=== PATIENT | male | born 1940 | race Caucasian/White ===

== ENCOUNTER 2020-09-02 11:43 | Outpatient (REF) | payer MEDICARE, SELFPAY ==
[2020-09-02 14:09] LABS: Glucose Urine UA NEG (NEG); Leukocyte Esterase Urine NEG (NEG); Nitrite Urine NEG (NEG); Urine Blood NEG (NEG); Urine Ketones 5 MG/DL (NEG); Urine Protein NEG (NEG-TRACE)
[2020-09-02 14:11] LABS: Appearance Urine CLEAR; Color Urine YELLOW
[2020-09-02 14:32] LABS: Anion Gap 14 (12-20); Blood Urea Nitrogen 21 mg/dL (9-16); Calcium 9.5 mg/dL (8.4-10.2); Carbon Dioxide 27 mmol/L (22-29); Chloride 104 mmol/L (96-108); Cholesterol 204 mg/dL; Estimated Glomerular Filt Rate > 60; Glucose Fasting 89 mg/dL (60-99); HDL Cholesterol 47 mg/dL; LDL Cholesterol Calculated 129 mg/dl; Potassium 4.8 mmol/l (3.3-5.1); Sodium 140 mmol/L (135-145); Triglycerides 144 mg/dL
[2020-09-02 14:55] LABS: Prostate Specific Antigen Scr 2.46 ng/mL (<0.05-4.0); TSH reflex Free T4 2.73 mIU/mL (0.32-4.0)
== END 2020-09-02 11:44 | disposition home or self-care (01) ==
LOC: HO.HMGCLDS 11:43
PROVIDERS: PCP Nurse Practitioner Family; Visit Provider Nurse Practitioner Family
DX: I10 Essential (primary) hypertension (principal); E79.0 Hyperuricemia without signs of inflammatory arthritis and tophaceous disease; Z12.5 Encounter for screening for malignant neoplasm of prostate
CPT/HCPCS: 80048; 80061; 81003; 84153; 84443

== ENCOUNTER 2021-06-21 10:06 | Outpatient (REF) | payer MEDICARE, SELFPAY ==
[2021-06-21 11:27] LABS: MANUAL DIFF FLAG NO
[2021-06-21 11:38] LABS: Basophils Percent Auto 0.6 % (0-2); Eosinophils Absolute Auto 0.1 X10*3/uL (0.0-0.4); Eosinophils Percent Auto 1.5 % (0-4); Hemoglobin 10.6 g/dl (14.0-18.0); Imm Gran Abs Auto 0.16 X10*3/uL (0.00-0.03); Imm Gran Pct Auto 2.9 % (0.0-0.4); Lymphocytes Percent Auto 17.9 % (20-40); Mean Corpuscular HGB Conc 31.2 g/dl (31.0-36.0); Mean Corpuscular Volume 96.3 fL (80-98); Mean Platelet Volume 9.4 fL (9.4-12.4); Monocytes Percent Auto 18.6 % (2-11); Neutrophils Absolute Auto 3.2 X10*3/uL (2.0-8.3); Neutrophils Percent Auto 58.5 % (45-73); Platelet Count 266 X10*3/uL (160-400); Red Blood Count 3.53 X10*6/uL (4.60-5.80); Red Cell Distribution Width 16.7 % (11.0-16.0); White Blood Count 5.4 X10*3/uL (4.8-10.8)
[2021-06-21 11:53] LABS: Alanine Aminotransferase 21 U/L (0-40); Albumin Level 2.1 g/dL (3.5-5.0); Alkaline Phosphatase 121 U/L (39-117); Anion Gap 12 (12-20); Aspartate Amino Transferase 30 U/L (5-37); Blood Urea Nitrogen 15 mg/dL (9-16); Calcium 7.2 mg/dL (8.4-10.2); Carbon Dioxide 21 mmol/L (22-29); Chloride 111 mmol/L (96-108); Estimated Glomerular Filt Rate > 60; Glucose Random 88 mg/dL (60-115); Potassium 4.5 mmol/L (3.3-5.1); Sodium 139 mmol/L (135-145); Total Protein 4.6 g/dL (6.5-8.0)
[2021-06-21 12:12] LABS: Bilirubin Total 0.5 mg/dL (0.0-1.0)
[2021-06-21 12:15] LABS: TSH reflex Free T4 3.76 uIU/mL (0.32-4.0)
== END 2021-06-21 10:07 | disposition home or self-care (01) ==
LOC: HO.HMGCLDS 10:06
PROVIDERS: PCP Nurse Practitioner Family; Visit Provider Nurse Practitioner Family
DX: M79.89 Other specified soft tissue disorders (principal)
CPT/HCPCS: 36415; 80053; 84443; 85025

== ENCOUNTER 2021-07-09 11:13 | Emergency (ER) | payer MEDICARE, SELFPAY ==
--- NOTE | ~2021-07-09 | XR_ITS ---
EXAMINATION: XR CHEST CLINICAL INFORMATION: CHF question COMPARISON: None TECHNIQUE: Frontal view of the chest was obtained. FINDINGS: The lungs are well-expanded with patchy linear density right middle lobe likely infiltrate or atelectasis. Rest lungs are clear. Heart size and perivascular is normal. There is a right central venous port with its tip in the mid SVC. No gross bony abnormality seen. XR/XR chest 1V IMPRESSION: Unremarkable linear ill-defined density right middle lobe likely atelectasis or infiltrate.
[2021-07-09 11:15] VITALS: BP 129/81; PULSE 80; RESP 18; TEMP 36; O2SAT 99; BMI 21.9
--- NOTE | 2021-07-09 11:48 | ED_ITS ---
HPI - General Adult General Chief complaint: General Medical Stated complaint: swollen extremities Time Seen by Provider: 07/09/21 11:48 Source: patient Mode of arrival: ambulatory Limitations: no limitations History of Present Illness HPI narrative: Patient is 81 years old with history of hypertension bladder cancer came to the ER for overall swelling for last 3 weeks specially in the lower extremities patient denies any shortness of breath or chest pain no black stools patient been told that he has low protein and he was trying to eat well , not on any diuretics patient denies any liver disease ,currently he is urinating a lot patient used to have diarrhea before now having well-formed stool Related Data Home Medications Medication Instructions Recorded Confirmed diazepam 10 mg tablet 10 mg PO DAILY PRN 01/11/21 06/21/21 diphenoxylate-atropine 2.5 tab PO 06/21/21 06/21/21 mg-0.025 mg tablet loperamide 2 mg capsule mg PO 06/21/21 06/21/21 potassium chloride 10 mEq 10 meq PO DAILY 06/21/21 06/21/21 tablet,extended release Previous Rx's Medication Instructions Recorded furosemide 20 mg tablet (Lasix) 20 mg PO QAM #30 tab 07/09/21 Allergies Allergy/AdvReac Type Severity Reaction Status Date / Time No Known Allergies Allergy Verified 06/21/21 10:41 Review of Systems Review of Systems: Yes all other systems are reviewed and are negative [facility] Past Medical History Medical History Anxiety Bladder cancer Bladder mass Hematuria HTN (hypertension) Malignant neoplasm of bladder Torticollis Surgical History History of tonsillectomy Family History Family History Mother Breast cancer Sister Breast cancer Brother Myocardial infarction Maternal Grandmother Unknown family medical history Social History Social History Advance Directives: No Physical Exam Vital Signs: Vital Signs: Last Vital Signs Temp 96.8 F 07/09/21 11:15 Pulse 69 07/09/21 14:17 Resp 18 07/09/21 14:17 BP 145/77 H 07/09/21 14:17 Pulse Ox 96 07/09/21 14:17 Body Mass Index 21.9 Appearance: Alert. Oriented X3. No acute distress. Tender as anasarca Eyes: Pallor+ no icterus ENT: Pharynx normal. Oral Mucosa moist Neck: Normal inspection. Neck supple. CVS: Normal heart rate and rhythm. Pulses normal. Respiratory: No respiratory distress. Equal air entry bilateral, no wheezing/rales/rhonchi Abdomen: Soft and nontender. Bowel sounds are present, no mass palpable, no CVA tenderness Skin: Skin warm and dry. Normal skin color. Normal skin turgor. Extremities: 4+ lower extremity edema. No calf tenderness swelling of the upper extremity also Neuro: Oriented X 3. No motor deficit. No sensory deficit.No cerebellar signs , cranial nerves II-XII intact Medical Decision Making MDM Narrative Medical decision making narrative: Patient with hypoalbuminemia of 2.3 likely the cause of general anasarca etiology not very clear will start patient on diuretics advised to follow with PCP also advised patient to have high-protein diet Lab Data Lab results reviewed: Yes I reviewed the patient's lab results. Result diagrams: 07/09/21 13:08 07/09/21 13:08 Labs: Lab Results 07/09/21 07/09/21 07/09/21 Range/Units 13:08 13:08 13:08 WBC 4.7 L (4.8-10.8) X10*3/uL RBC 3.64 L (4.60-5.80) X10*6/uL Hgb 11.0 L (14.0-18.0) g/dl Hct 35.6 L (42-52) % MCV 97.8 (80-98) fL MCH 30.2 (27.0-33.0) pg MCHC 30.9 L (31.0-36.0) g/dl RDW 17.2 H (11.0-16.0) % Plt Count 216 (160-400) X10*3/uL MPV 8.5 L (9.4-12.4) fL Immature Gran % (Auto) 0.6 H (0.0-0.4) % Neut % (Auto) 62.4 (45-73) % Lymph % (Auto) 21.4 (20-40) % Patrick % (Auto) 13.3 H (2-11) % Eos % (Auto) 1.5 (0-4) % Baso % (Auto) 0.8 (0-2) % Lymph # (Auto) 1.0 L (1.2-4.9) X10*3/uL Patrick # (Auto) 0.6 (0.1-1.2) X10*3/uL Eos # (Auto) 0.1 (0.0-0.4) X10*3/uL Baso # (Auto) 0.0 (0.0-0.2) X10*3/uL Abs Immat Gran (auto) 0.03 (0.00-0.03) X10*3/uL Absolute Neuts (auto) 2.9 (2.0-8.3) X10*3/uL Absolute Nucleated RBC 0.000 (0.0-0.012) X10*3/uL Nucleated RBC % (auto) 0.0 (0.0-0.2) /100WBC Sodium 140 (135-145) mmol/L Potassium 5.1 (3.3-5.1) mmol/L Chloride 111 H (96-108) mmol/L Carbon Dioxide 23 (22-29) mmol/L Anion Gap 11 L (12-20) BUN 15 (9-16) mg/dL Creatinine 0.64 (0.5-1.4) mg/dL Estim Creat Clear Calc 84.0 Estimated GFR > 60 Random Glucose 86 (60-115) mg/dL Calcium 7.6 L (8.4-10.2) mg/dL Magnesium 2.0 (1.6-2.6) mg/dL Total Bilirubin 0.7 (0.0-1.0) mg/dL AST 41 H (5-37) U/L ALT 28 (0-40) U/L Alkaline Phosphatase 108 (39-117) U/L Troponin I High Sens 8.8 (<3.5-35.0) ng/L B-Natriuretic Peptide 205 H (<100) pg/mL Total Protein 5.2 L (6.5-8.0) g/dL Albumin 2.3 L (3.5-5.0) g/dL Discharge Plan Discharge Clinical Impression: Edema due to hypoalbuminemia Patient Disposition: Home, Self-Care Instructions: Leg Edema (ED) Additional Instructions: Your generalized swelling is secondary to low protein in your blood Eat well and Have high protein diet Water pill as advised Follow-up with your PCP Prescriptions: New furosemide [Lasix] 20 mg tablet 20 mg PO QAM Qty: 30 RF: 0 No Action diazepam 10 mg tablet 10 mg PO DAILY PRNRF: 0 loperamide 2 mg capsule PO RF: 0 diphenoxylate-atropine 2.5-0.025 mg tablet PO RF: 0 potassium chloride 10 mEq tablet extended release 10 meq PO DAILY RF: 0
[2021-07-09 13:13] LABS: MANUAL DIFF FLAG NO
[2021-07-09 13:18] LABS: Basophils Percent Auto 0.8 % (0-2); Eosinophils Absolute Auto 0.1 X10*3/uL (0.0-0.4); Eosinophils Percent Auto 1.5 % (0-4); Hematocrit 35.6 % (42-52); Imm Gran Abs Auto 0.03 X10*3/uL (0.00-0.03); Imm Gran Pct Auto 0.6 % (0.0-0.4); Lymphocytes Percent Auto 21.4 % (20-40); Mean Corpuscular HGB Conc 30.9 g/dl (31.0-36.0); Mean Corpuscular Hemoglobin 30.2 pg (27.0-33.0); Mean Corpuscular Volume 97.8 fL (80-98); Mean Platelet Volume 8.5 fL (9.4-12.4); Monocytes Absolute Auto 0.6 X10*3/uL (0.1-1.2); Monocytes Percent Auto 13.3 % (2-11); Neutrophils Absolute Auto 2.9 X10*3/uL (2.0-8.3); Neutrophils Percent Auto 62.4 % (45-73); Platelet Count 216 X10*3/uL (160-400); Red Blood Count 3.64 X10*6/uL (4.60-5.80); Red Cell Distribution Width 17.2 % (11.0-16.0); White Blood Count 4.7 X10*3/uL (4.8-10.8)
[2021-07-09 13:35] LABS: B Type Natriuretic Peptide 205 pg/mL (<100); Troponin-I High Sensitivity 8.8 ng/L (<3.5-35.0)
[2021-07-09 13:55] LABS: Alanine Aminotransferase 28 U/L (0-40); Albumin Level 2.3 g/dL (3.5-5.0); Alkaline Phosphatase 108 U/L (39-117); Anion Gap 11 (12-20); Aspartate Amino Transferase 41 U/L (5-37); Bilirubin Total 0.7 mg/dL (0.0-1.0); Blood Urea Nitrogen 15 mg/dL (9-16); Calcium 7.6 mg/dL (8.4-10.2); Carbon Dioxide 23 mmol/L (22-29); Chloride 111 mmol/L (96-108); Estimated Glomerular Filt Rate > 60; Glucose Random 86 mg/dL (60-115); Potassium 5.1 mmol/L (3.3-5.1); Sodium 140 mmol/L (135-145); Total Protein 5.2 g/dL (6.5-8.0)
[2021-07-09] MEDS: Furosemide 20 MG/2 ML VIAL IVPUSH (14:12)
[2021-07-09] MEDS: Albumin Human 25 % 100 ML IV ×2 (14:12→15:41)
[2021-07-09 14:17] VITALS: BP 145/77; PULSE 69; RESP 18; O2SAT 96
[2021-07-09 16:51] VITALS: BP 169/71; PULSE 78; O2SAT 98
--- NOTE | 2021-07-09 16:52 | PC.NURSE ---
voided approx,1 l of urine , nad, skin wpd, inst rerviewed
== END 2021-07-09 16:59 | disposition home or self-care (01) ==
PROVIDERS: Emergency Provider Internal Medicine; PCP Nurse Practitioner Family
DX: R60.0 Localized edema (principal); E88.09 Other disorders of plasma-protein metabolism, not elsewhere classified; R06.02 Shortness of breath; Z79.899 Other long term (current) drug therapy
CPT/HCPCS: 36415; 71045; 80053; 83735; 83880; 84484; 85025; 96365; 96366; 96375; 99283; 99284; J1940; P9047

== ENCOUNTER 2021-10-13 11:59 | Outpatient (RCR) | payer MEDICARE, SELFPAY ==
[2021-10-22 14:19] LABS: Anion Gap 15 (12-20); Blood Urea Nitrogen 19 mg/dL (9-16); Calcium 8.7 mg/dL (8.4-10.2); Carbon Dioxide 23 mmol/L (22-29); Chloride 107 mmol/L (96-108); Estimated Glomerular Filt Rate > 60; Glucose Fasting 93 mg/dL (60-99); Potassium 4.5 mmol/L (3.3-5.1); Sodium 140 mmol/L (135-145)
== END 2021-11-10 15:05 | disposition home or self-care (01) ==
LOC: HO.WCC 11:59
PROVIDERS: PCP Internal Medicine; Visit Provider Surgery
DX: I87.333 Chronic venous hypertension (idiopathic) with ulcer and inflammation of bilateral lower extremity (principal); L97.822 Non-pressure chronic ulcer of other part of left lower leg with fat layer exposed; L97.812 Non-pressure chronic ulcer of other part of right lower leg with fat layer exposed; L13.8 Other specified bullous disorders; C67.9 Malignant neoplasm of bladder, unspecified; Z86.73 Personal history of transient ischemic attack (TIA), and cerebral infarction without residual deficits; Z79.899 Other long term (current) drug therapy
CPT/HCPCS: 11042; 36415; 80048; 99213; 99214

== ENCOUNTER 2021-11-15 12:50 | Outpatient (REF) | payer MEDICARE, SELFPAY ==
[2021-11-15 13:45] LABS: MANUAL DIFF FLAG NO
[2021-11-15 13:48] LABS: Basophils Absolute Auto 0.1 X10*3/uL (0.0-0.2); Basophils Percent Auto 0.8 % (0-2); Eosinophils Absolute Auto 0.3 X10*3/uL (0.0-0.4); Hematocrit 31.8 % (42.0-52.0); Hemoglobin 9.4 g/dl (14.0-18.0); Imm Gran Abs Auto 0.02 X10*3/uL (0.00-0.03); Imm Gran Pct Auto 0.3 % (0.0-0.4); Lymphocytes Absolute Auto 0.9 X10*3/uL (1.2-4.9); Lymphocytes Percent Auto 13.4 % (20-40); Mean Corpuscular HGB Conc 29.6 g/dl (31.0-36.0); Mean Corpuscular Hemoglobin 25.6 pg (27.0-33.0); Mean Corpuscular Volume 86.6 fL (80.0-98.0); Mean Platelet Volume 9.6 fL (9.4-12.4); Monocytes Absolute Auto 0.8 X10*3/uL (0.1-1.2); Neutrophils Absolute Auto 4.6 x10*3/uL (2.0-8.3); Neutrophils Percent Auto 69.5 % (45-73); Platelet Count 284 X10*3/uL (160-400); Red Blood Count 3.67 X10*6/uL (4.60-5.80); Red Cell Distribution Width 17.7 % (11.0-16.0); White Blood Count 6.6 X10*3/uL (4.8-10.8)
[2021-11-15 14:18] LABS: B Type Natriuretic Peptide 64 pg/mL (<100)
[2021-11-15 14:26] LABS: Alanine Aminotransferase 13 U/L (0-40); Albumin Level 3.4 g/dL (3.5-5.0); Alkaline Phosphatase 78 U/L (39-117); Anion Gap 9 (12-20); Aspartate Amino Transferase 18 U/L (5-37); Bilirubin Total 0.4 mg/dL (0.0-1.0); Blood Urea Nitrogen 24 mg/dL (9-16); Calcium 8.9 mg/dL (8.4-10.2); Carbon Dioxide 29 mmol/L (22-29); Chloride 105 mmol/L (96-108); Estimated Glomerular Filt Rate 55; Glucose Random 97 mg/dL (60-115); Sodium 138 mmol/L (135-145); Total Protein 6.3 g/dL (6.5-8.0)
== END 2021-11-15 12:51 | disposition home or self-care (01) ==
LOC: HO.HMGCLDS 12:50
PROVIDERS: Visit Provider Internal Medicine
DX: E88.09 Other disorders of plasma-protein metabolism, not elsewhere classified (principal); I10 Essential (primary) hypertension; M79.89 Other specified soft tissue disorders
CPT/HCPCS: 36415; 80053; 83880; 85025

== ENCOUNTER 2021-12-28 15:00 | Outpatient (REF) | payer MEDICARE, SELFPAY ==
[2021-12-28 17:33] LABS: Alanine Aminotransferase 14 U/L (0-40); Albumin Level 3.6 g/dL (3.5-5.0); Alkaline Phosphatase 74 U/L (39-117); Anion Gap 18 (12-20); Aspartate Amino Transferase 21 U/L (5-37); Bilirubin Total 0.4 mg/dL (0.0-1.0); Blood Urea Nitrogen 24 mg/dL (9-16); Carbon Dioxide 23 mmol/L (22-29); Chloride 104 mmol/L (96-108); Estimated Glomerular Filt Rate 56; Glucose Random 89 mg/dL (60-115); Potassium 4.9 mmol/L (3.3-5.1); Sodium 140 mmol/L (135-145); Total Protein 6.3 g/dL (6.5-8.0)
[2021-12-28 17:47] LABS: Hematocrit 35.9 % (42.0-52.0); Hemoglobin 11.2 g/dl (14.0-18.0); Mean Corpuscular HGB Conc 31.2 g/dl (31.0-36.0); Mean Corpuscular Hemoglobin 27.3 pg (27.0-33.0); Mean Corpuscular Volume 87.3 fL (80.0-98.0); Platelet Count 249 X10*3/uL (160-400); Red Blood Count 4.11 X10*6/uL (4.60-5.80); Red Cell Distribution Width 18.1 % (11.0-16.0); White Blood Count 5.3 X10*3/uL (4.8-10.8)
== END 2021-12-28 15:01 | disposition home or self-care (01) ==
LOC: HO.HVNA 15:00
PROVIDERS: Visit Provider Nurse Practitioner Family
DX: E88.09 Other disorders of plasma-protein metabolism, not elsewhere classified (principal); L03.119 Cellulitis of unspecified part of limb; C67.9 Malignant neoplasm of bladder, unspecified
CPT/HCPCS: 36415; 80053; 85027

== ENCOUNTER 2022-03-17 07:20 | Outpatient (REF) | payer MEDICARE, SELFPAY | END 2022-03-17 07:21 | disposition home or self-care (01) | LOC: HO.HOSX 07:20 | PROVIDERS: Visit Provider Physician Assistant | DX: Z13.89 Encounter for screening for other disorder (principal) ==

== ENCOUNTER 2022-03-31 05:36 | Outpatient (REF) | payer MEDICARE, OTHER, SELFPAY ==
--- NOTE | ~2022-03-31 | XR_ITS ---
EXAMINATION: XR KNEES, STANDING AP XR KNEE, RIGHT CLINICAL INFORMATION: Knee pain. COMPARISON: None. TECHNIQUE: Standing AP view of both knees is performed along with lateral and axial patella views of the right knee. FINDINGS: RIGHT: No fracture, dislocation or destructive process. There is prominent narrowing medial knee joint compartment with secondary genu varus. There are no erosive changes or definite chondrocalcinosis. Degenerative changes also involve the patellofemoral joint. No lateralization or tilting. There is spurring at the quadriceps insertion patella and origin patellar tendon. No suprapatellar effusion. The deep infrapatellar recess is preserved. LEFT: No visible fracture, dislocation or destructive process. There is prominent narrowing medial knee joint compartment with secondary genu varus. Probable tiny geode in the medial femoral condyle. No visible erosive change or chondrocalcinosis. XR/XR knee RT 2V IMPRESSION: RIGHT: Prominent narrowing medial knee joint compartment with secondary genu varus. Osteoarthritic changes of the patellofemoral joint. No lateralization or tilting. Spurring quadriceps insertion patella and origin patellar tendon. No effusion. LEFT: Prominent narrowing medial knee joint compartment with secondary genu varus.
--- NOTE | ~2022-03-31 | XR_ITS ---
EXAMINATION: XR KNEES, STANDING AP XR KNEE, RIGHT CLINICAL INFORMATION: Knee pain. COMPARISON: None. TECHNIQUE: Standing AP view of both knees is performed along with lateral and axial patella views of the right knee. FINDINGS: RIGHT: No fracture, dislocation or destructive process. There is prominent narrowing medial knee joint compartment with secondary genu varus. There are no erosive changes or definite chondrocalcinosis. Degenerative changes also involve the patellofemoral joint. No lateralization or tilting. There is spurring at the quadriceps insertion patella and origin patellar tendon. No suprapatellar effusion. The deep infrapatellar recess is preserved. LEFT: No visible fracture, dislocation or destructive process. There is prominent narrowing medial knee joint compartment with secondary genu varus. Probable tiny geode in the medial femoral condyle. No visible erosive change or chondrocalcinosis. XR/XR knee standing BI IMPRESSION: RIGHT: Prominent narrowing medial knee joint compartment with secondary genu varus. Osteoarthritic changes of the patellofemoral joint. No lateralization or tilting. Spurring quadriceps insertion patella and origin patellar tendon. No effusion. LEFT: Prominent narrowing medial knee joint compartment with secondary genu varus.
== END 2022-03-31 05:37 | disposition home or self-care (01) ==
LOC: HO.HOSX 05:36
PROVIDERS: Visit Provider Physician Assistant
DX: M17.11 Unilateral primary osteoarthritis, right knee (principal); M25.562 Pain in left knee
CPT/HCPCS: 20610; 73560; 73565; 99202; J1040

== ENCOUNTER 2023-04-04 07:26 | Outpatient (REF) | payer MEDICARE, SELFPAY ==
[2023-04-04 11:27] LABS: MANUAL DIFF FLAG NO
[2023-04-04 11:34] LABS: Appearance Urine Clear; Color Urine Yellow; Glucose Urine UA Negative (Negative); Leukocyte Esterase Urine Small (1+) (Negative); Nitrite Urine Negative (Negative); Specific Gravity - Urine 1.015 (1.005-1.025); UMIC TRIGGER UACC YES; Urine Blood Small (1+) (Negative); Urine Ketones Negative (Negative); Urine Protein Negative (Neg-Trace)
[2023-04-04 11:38] LABS: Basophils Absolute Auto 0.1 X10*3/uL (0.0-0.2); Basophils Percent Auto 0.8 % (0-2); Eosinophils Absolute Auto 0.3 X10*3/uL (0.0-0.4); Eosinophils Percent Auto 5.1 % (0-4); Hematocrit 39.7 % (42.0-52.0); Hemoglobin 12.1 g/dl (14.0-18.0); Imm Gran Abs Auto 0.04 X10*3/uL (0.00-0.03); Imm Gran Pct Auto 0.7 % (0.0-0.4); Lymphocytes Absolute Auto 0.9 X10*3/uL (1.2-4.9); Lymphocytes Percent Auto 14.9 % (20-40); Mean Corpuscular HGB Conc 30.5 g/dl (31.0-36.0); Mean Corpuscular Hemoglobin 27.4 pg (27.0-33.0); Mean Corpuscular Volume 89.8 fL (80.0-98.0); Monocytes Absolute Auto 0.6 X10*3/uL (0.1-1.2); Monocytes Percent Auto 10.1 % (2-11); Neutrophils Absolute Auto 4.2 x10*3/uL (2.0-8.3); Neutrophils Percent Auto 68.4 % (45-73); Platelet Count 235 X10*3/uL (160-400); Red Blood Count 4.42 X10*6/uL (4.60-5.80); Red Cell Distribution Width 14.8 % (11.0-16.0); White Blood Count 6.1 X10*3/uL (4.8-10.8)
[2023-04-04 12:00] LABS: Bacteria Urine None Seen (None Seen); Hyaline Casts Urine 0-2 /LPF (0-2); Squamous Epithelial Cell Urine 0-2 /HPF (0-2); UACC Culture Trigger YES; WBC Urine 21-50 /HPF (0-5)
[2023-04-04 12:11] LABS: Alanine Aminotransferase 12 U/L (0-40); Alkaline Phosphatase 65 U/L (39-117); Anion Gap 14 (12-20); Aspartate Amino Transferase 19 U/L (5-37); Bilirubin Total 1.1 mg/dL (0.0-1.0); Blood Urea Nitrogen 18 mg/dL (9-16); Calcium 9.2 mg/dL (8.4-10.2); Carbon Dioxide 25 mmol/L (22-29); Chloride 106 mmol/L (96-108); Cholesterol 171 mg/dL; Estimated Glomerular Filt Rate > 60; Glucose Fasting 90 mg/dL (60-99); HDL Cholesterol 51 mg/dL; LDL Cholesterol Calculated 88 mg/dl; Potassium 4.3 mmol/L (3.3-5.1); Sodium 141 mmol/L (135-145); Total Protein 6.7 g/dL (6.5-8.0); Triglycerides 162 mg/dL
[2023-04-04 12:31] LABS: TSH reflex Free T4 4.97 uIU/mL (0.32-4.0)
[2023-04-04 12:34] LABS: Prostate Specific Antigen Scr < 0.10 ng/mL (<0.05-4.0)
[2023-04-04 13:36] LABS: Free T4 (Free Thyroxine) 0.82 ng/dL (0.71-1.85)
== END 2023-04-04 07:27 | disposition home or self-care (01) ==
LOC: HO.HMGCLDS 07:26
PROVIDERS: PCP Nurse Practitioner Family; Visit Provider Nurse Practitioner Family
DX: Z00.00 Encounter for general adult medical examination without abnormal findings (principal); R82.90 Unspecified abnormal findings in urine; Z20.2 Contact with and (suspected) exposure to infections with a predominantly sexual mode of transmission; Z12.5 Encounter for screening for malignant neoplasm of prostate; I10 Essential (primary) hypertension; R94.6 Abnormal results of thyroid function studies
CPT/HCPCS: 36415; 80053; 80061; 81001; 84153; 84439; 84443; 85025; 87086

== ENCOUNTER 2024-03-13 09:04 | Outpatient (RCR) | payer MEDICARE, SELFPAY | END 2024-05-31 09:27 | disposition home or self-care (01) | LOC: HO.WCC 09:04 | PROVIDERS: PCP Nurse Practitioner Family; Visit Provider Surgery | DX: I87.332 Chronic venous hypertension (idiopathic) with ulcer and inflammation of left lower extremity (principal); L97.821 Non-pressure chronic ulcer of other part of left lower leg limited to breakdown of skin; Z92.3 Personal history of irradiation; Z92.21 Personal history of antineoplastic chemotherapy; Z86.73 Personal history of transient ischemic attack (TIA), and cerebral infarction without residual deficits | CPT/HCPCS: 97597; 99213 ==